=== PATIENT | female | born 1950 | race Caucasian/White ===

== ENCOUNTER 2017-12-01 08:23 | Day surgery (SDC) | payer OTHER, MEDICARE ==
[~2017-12-01] VITALS: Ht 157.5 cm; Wt 88.4 kg
[~2017-12-01 08:23] MED LIST: HEPARIN 1,000 UNITS/ML, 10ML ONE
[2017-12-01 09:13] VITALS: BP 157/86
[2017-12-01] MEDS ORDERED: DENIES (09:18)
[2017-12-01] MEDS ORDERED: SODIUM CHLORIDE 0.9% 1,000 ML IV SCH (09:19)
[2017-12-01 10:22] LABS: BASOPHILS # (AUTO) 0.02 x10^3/uL (0-0.1); BASOPHILS % (AUTO) 0 % (0-1); EOSINOPHILS # (AUTO) 0.15 x10^3/uL (0-0.4); EOSINOPHILS % (AUTO) 3 % (1-7); LYMPHOCYTES # (AUTO) 1.02 x10^3/uL (1-3.4); LYMPHOCYTES % (AUTO) 19 % (22-44); MD NO; MEAN CORPUSCULAR HEMOGLOBIN 31.5 pg (27.0-34.8); MEAN CORPUSCULAR HGB CONC 34.3 g/dL (32.4-35.8); MEAN PLATELET VOLUME 7.8 fL (7.4-10.4); MONOCYTES # (AUTO) 0.39 x10^3/uL (0.2-0.8); MONOCYTES % (AUTO) 7 % (2-9); NEUTROPHILS # (AUTO) 3.76 x10^3/uL (1.8-6.8); NEUTROPHILS % (AUTO) 71 % (42-75); PLATELET COUNT 188 x10^3/uL (130-400); RED BLOOD COUNT 3.51 x10^6/uL (3.82-5.3); RED CELL DISTRIBUTION WIDTH 13.5 % (9.6-15.2)
[2017-12-01] MEDS ORDERED: FENTANYL PF 100 MCG/2ML ONE ×2 (12:17→14:25)
[2017-12-01] MEDS ORDERED: LABETALOL 5MG/ML, 20ML ONE (13:07)
[2017-12-01] MEDS ORDERED: ONDANSETRON 2MG/ML, 2ML ONE (13:07)
[2017-12-01] MEDS ORDERED: PROPOFOL 10 MG/ML, 20ML ONE (13:07)
[2017-12-01] MEDS ORDERED: CEFAZOLIN 1,000 MG ONE (13:07)
[2017-12-01] MEDS ORDERED: HYDROcodone/APAP 7.5-325MG/15ML UDC PO PRN (13:30)
[2017-12-01] MEDS ORDERED: FENTANYL PF 100 MCG/2ML IV PRN (13:30)
[2017-12-01] MEDS ORDERED: OXYcodone 5 MG/5 ML ORAL.SOL UDC PO PRN (13:30)
[2017-12-01] MEDS ORDERED: ACETAMINOPHEN 325 MG TABLET PO PRN (13:30)
[2017-12-01] MEDS ORDERED: ACETAMINOPHEN 650 MG/20.3 ML UDC ONE (14:24)
[2017-12-01] MEDS ORDERED: OXYcodone 5 MG/5 ML ORAL.SOL UDC ONE (14:25)
[2017-12-01] MEDS ORDERED: hydrALAzine 20 MG/ML, 1ML IV PRN (14:30)
== END 2017-12-01 16:15 ==
LOC: OUT 08:23
PROVIDERS: ATTEND Surgery Vascular Surgery
DX: T82.590A Other mechanical complication of surgically created arteriovenous fistula, initial encounter (principal); Y83.8 Other surgical procedures as the cause of abnormal reaction of the patient, or of later complication, without mention of misadventure at the time of the procedure; N19 Unspecified kidney failure; Y92.89 Other specified places as the place of occurrence of the external cause; Z88.6 Allergy status to analgesic agent
CPT/HCPCS: 36415; 36832; 80047; 85025; 93005; J0690; J1644; J2405; J2704; J3010; J7030